=== PATIENT | female | born 1995 | race Caucasian/White ===

== ENCOUNTER 2019-10-28 21:18 | Inpatient (IN) ==
[2019-10-28 22:30] LABS: BASO# 0.02 X1000 (0.0-0.2); BASO% 0.2 % (0.0-0.8); EOS# 0.06 X1000 (0.0-0.7); EOS% 0.6 % (0.0-10.0); HEMATOCRIT 39.6 % (37.0-47.0); IMM GRAN# 0.03 X1000 (0.0-0.04); IMM GRAN% 0.3 % (0.0-0.5); LYMPH# 1.62 X1000 (1.2-3.4); LYMPH% 17.4 % (20.5-51.1); MCHC 30.3 g/dL (33-37); MCV 82.5 FL (81-99); MONO# 0.56 X1000 (0.11-0.59); MPV 10.6 FL (7.4-10.4); NEUT# 7.04 X1000 (1.4-6.5); NEUT% 75.5 % (42.2-75.2); PLT 304 X1000 (130-400); RDW 14.5 % (11.5-14.5); WBC 9.33 X1000 (4.8-10.8)
[2019-10-28 22:45] LABS: AGAP 15; ALB/GLOB RATIO 1.3; ALKALINE PHOSPHATASE 390 U/L (32-104); BUN 17 mg/dL (8-22); CALCIUM 9.7 mg/dL (8.8-10.2); CHLORIDE 104 mmol/L (98-107); COSMO 289; CREATININE 0.8 mg/dL (0.5-0.9); ESTIMATED GFR > 60; GLUCOSE 148 mg/dL (70-104); GOT 301 U/L (10-30); GPT 324 U/L (10-36); SODIUM 143 mmol/L (136-145); TCO2 24 mmol/L (25-35); TOTAL BILIRUBIN 4.15 mg/dL (0.20-1.00); TOTAL PROTEIN 7.1 g/dL (6.3-8.3)
[2019-10-28] MEDS ORDERED: G.I. COCKTAIL PO ONE (22:49)
[2019-10-28] MEDS ORDERED: ZOFRAN IV ONE (22:49)
[2019-10-29 00:16] LABS: AMYLASE 6063 U/L (20-200); LIPASE > 3000 U/L (13-60)
[2019-10-29] MEDS ORDERED: DILAUDID IV ONE (03:20)
[2019-10-29] MEDS ORDERED: NS 1,000 ML IV ONE ×2 (03:20→07:33)
[2019-10-29] MEDS ORDERED: ZOFRAN IV ONE (03:20)
--- NOTE | 2019-10-29 03:28 | PROVIDER DOCUMENTATION ---
This chart was entered by Shereen Lea Scribe, acting as scribe for Rebel White MD. HPI-Abdominal Pain/GI Problem - General Chief Complaint: Abdominal Pain Stated Complaint: ABD PAIN Time Seen by Provider: 10/28/19 21:19 Source: patient Allergies/Adverse Reactions: Patient Allergies Allergy/AdvReac Type Severity Reaction Status Date / Time amoxicillin trihydrate * Allergy RASH Verified 10/29/19 02:09 [From Augmentin] potassium clavulanate * Allergy RASH Verified 10/29/19 02:09 [From Augmentin] Home Medications: Home Medication List Medication Instructions Recorded Confirmed Last Taken Type NK [No Home Medications] 08/08/18 10/29/19 Unknown History - History of Present Illness-ABD Nature of Presenting Problems: 24 yowf c/o n/v and cramping upper abd pain starting last night. pt family sts thought she got food poisoning form [employer] yest. denies diarrhea and cons tipation. pt recently gave on 10-03-2019. hx of gerd w/no meds. allergy to augmentin. Abdominal Pain Onset Location: reports: RUQ, LUQ, epigastric Pain Radiation: reports: no radiation Quality of Pain: reports: cramping Severity in ED: reports: mild Onset/Duration: reports: last night Timing: reports: still present Activities at Onset: reports: none Modifying Factors: improves with: eating Associated Symptoms: reports: nausea, vomiting. denies: constipation, diarrhea # of Vomiting Episodes: 6 Recently seen or treated by another doctor?: Yes (pt gave 10-03-19 ) Review of Systems - Adult - REVIEW OF SYSTEMS - ADULT Constitutional: reports: no symptoms reported. denies: fever, fatique, night sweats Eyes: reports: no symptoms reported Ears, Nose, Mouth & Throat: reports: no symptoms reported Cardiovascular: reports: no symptoms reported Respiratory: reports: no symptoms reported Gastrointestinal: reports: see HPI, abdominal pain, frequent heartburn (hx), nausea, vomiting. denies: hematemesis, constipation, diarrhea Genitourinary: reports: no symptoms reported Musculoskeletal: reports: no symptoms reported Integumentary: reports: no symptoms reported Neurological: reports: no symptoms reported Psychiatric: reports: no symptoms reported Endocrine: reports: no symptoms reported Hematologic/Lymphatic: reports: no symptoms reported Allergic/Immunologic: reports: no symptoms reported All Other Systems: Reviewed and Negative Past History - Adult - PAST MEDICAL HISTORY-ADULT Review of Records: reports: Nursing Assessment Review, Medications Reviewed, Social history reviewed & non-contributory. Major Childhood Illnesses: reports: denies history Cardiovascular: reports: denies history Respiratory: reports: denies history Gastrointestinal: reports: GERD Obstetrical/Gynecological: reports: denies history Genitourinary: reports: kidney stones Musculoskeletal: reports: denies history Neurological: reports: denies history Psychiatric: reports: denies history Endocrine/Immune: reports: denies history Other Conditions: reports: denies history - PRIOR SURGERIES/PROCEDURES Surgical/Procedure History: reports: tonsillectomy, other - IMMUNIZATION STATUS Childhood Immunizations: See Nurse Assessment Flu Vaccine: See Nurse Assessment - FAMILY HISTORY Family History: reviewed, not pertinent - SOCIAL HISTORY Smoking: other (former smoker) Substance Use: none/never Physical Exam-General - PHYSICAL EXAM-ADULT Initial Vital Signs Reviewed: Yes - CONSTITUTIONAL General Appearance: alert, mild distress, obese. negative: cachetic, lethargic, slow to respond - EYES Eyes: PERRL/EOMI - HEAD, EARS, NOSE, MOUTH & THROAT HENMT: normocephalic/atraumatic, moist mucous membranes, other (drooling) - NECK Neck: non-tender, full range of motion, supple, normal inspection - RESPIRATORY Respiratory: chest non-tender, lungs clear, normal breath sounds - CARDIOVASCULAR Cardiovascular: normal peripheral pulses, regular rate, rhythm - GASTROINTESTINAL (ABDOMEN) Abdominal Exam: normal bowel sounds, soft, no organomegaly, no pulsatile mass, tenderness (epigastric pain on palp). negative: non tender, abnormal bowel sounds, distended - MUSCULOSKELETAL Back Exam: normal inspection Extremity: normal range of motion, non-tender, normal inspection - SKIN Integumentary: normal color, normal turgor, warm/dry - NEUROLOGIC Neurologic: grossly normal, no motor/sensory deficits - PSYCHIATRIC Psych/Mental Status: normal mood/affect, normal thought content, normal thought process, oriented x 3 Progress - PLAN OF CARE/RESULTS Progress/Plan/Lab Results: Vital Signs - 8 hr 10/28/19 21:23 Temperature 98.5 F Pulse Rate 89 Respiratory Rate 20 Blood Pressure 124/82 O2 Sat by Pulse Oximetry 95 Laboratory Results - last 24 hr 10/28/19 10/28/19 21:36 21:36 WBC 9.33 RBC 4.80 Hgb 12.0 Hct 39.6 MCV 82.5 MCH 25.0 L MCHC 30.3 L RDW Std Deviation 14.5 Plt Count 304 MPV 10.6 H Immature Gran % (Auto) 0.3 Neut % (Auto) 75.5 H Lymph % (Auto) 17.4 L [place] % (Auto) 6.0 Eos % (Auto) 0.6 Baso % (Auto) 0.2 Immature Gran # (Auto) 0.03 Neut # (Auto) 7.04 H Lymph # (Auto) 1.62 Tensas # (Auto) 0.56 Eos # (Auto) 0.06 Baso # (Auto) 0.02 Plasma Lactate 0.9 Orders Category Date Time Status ED: Urine Bedside ORDERED Care 10/28/19 21:31 Active NEWS Score 2-4:Order NEWS Lactate Series NOW Care 10/28/19 21:30 Active CBC WITH DIFF [HEME] Stat Lab 10/28/19 21:36 Completed COMPREHENSIVE METABOLIC PANEL [CHEM] Stat Lab 10/28/19 21:36 Received LACTATE, PLASMA [CHEM] Lab 10/29/19 01:30 Uncollected LACTATE, PLASMA [CHEM] Lab 10/29/19 04:30 Uncollected LACTATE, PLASMA [CHEM] Q3H Lab 10/28/19 21:36 Completed URINALYSIS [URINALYSIS] Stat Lab 10/28/19 21:31 Uncollected Abd Pain/Abn Bleeding Stat Oth 10/28/19 21:31 Ordered Result Diagrams: 10/28/19 21:36 10/28/19 21:36 - CT/MRI 1 CT Study: Abdomen, Pelvis Impression: Abnormal, See EMR Report (pancreatitis) - CONSULTS/PCP/HOSPITALIST Notification #1 *Consult/PCP/Hospitalist*: Dr Ppee Time Discussed: 03:24 Consult Disposition: Will see in ED, Admit Departure - Departure Date of Disposition Decision: 10/29/19 Time of Disposition Decision: 03:26 DIAGNOSIS: Pancreatitis, Nausea and vomiting Disposition: ADMITTED INPATIENT 09 Certified Medical Emergency: Emergent Condition: Fair Referrals and Follow-Ups: None,PCP [NON-STAFF PROVIDER] - - Critical Care Note This patient required my direct & personal management of CC.: No Attestation - Physician/ FAM Attestation Patient care was provided by Advanced Practice Provider:: No The physician spent face to face time with patient:: Yes Advanced Practice Provider documentation review:: Supervising physician onsite and consulted in the evaluation and care of this patient. The physician did have a face to face encounter with the patient. This chart was documented by the indicated scribe, (Shereen Lea, Sylvia) and accurately reflects the services I performed and decisions made by me, Rebel White MD, as attested by the provider's signature.
[2019-10-29 06:34] LABS: URINE SOURCE CLEAN CATCH
[2019-10-29 06:45] LABS: BILIRUBIN URINE MODERATE (NEGATIVE); BLOOD URINE SMALL (NEGATIVE); COLOR YELLOW; GLUCOSE URINE NEGATIVE (NEGATIVE); KETONE URINE 20 mg/dL (NEGATIVE); LEUKOCYTES URINE TRACE (NEGATIVE); NITRITE URINE NEGATIVE (NEGATIVE); PROTEIN URINE 50 mg/dL (NEGATIVE); TURBIDITY URINE CLEAR (CLEAR); UROBILINOGEN URINE 2 mg/dL (NORMAL)
[2019-10-29 07:14] LABS: URINE CASTS NONE SEEN; URINE CRYSTALS NONE SEEN; URINE SMALL ROUND CELLS NONE SEEN; URINE YEAST PRESENT
[2019-10-29 07:16] LABS: UR EPITHELIAL CELLS <10 /HPF (<10); URINE BACTERIA NEGATIVE /HPF; URINE RBC <10 /HPF (<10); URINE WBC TNTC /HPF (<10)
[2019-10-29 07:16] LABS: HEMATOCRIT 42.8 % (37.0-47.0); HEMOGLOBIN 12.9 g/dL (12.0-16.0); IMM GRAN# 0.02 X1000 (0.0-0.04); IMM GRAN% 0.2 % (0.0-0.5); INR 0.94; LYMPH# 0.72 X1000 (1.2-3.4); LYMPH% 7.1 % (20.5-51.1); MCH 25.1 PG (27-31); MCHC 30.1 g/dL (33-37); MCV 83.3 FL (81-99); MONO# 0.43 X1000 (0.11-0.59); MONO% 4.3 % (1.7-9.3); MPV 10.6 FL (7.4-10.4); NEUT# 8.93 X1000 (1.4-6.5); NEUT% 88.4 % (42.2-75.2); PLT 331 X1000 (130-400); PROTIME 12.7 Seconds (11.0-16.0); RBC 5.14 XMIL (4.2-5.4); RDW 14.9 % (11.5-14.5)
[2019-10-29 07:35] LABS: SP GRAVITY URINE 1.015
[2019-10-29 07:41] LABS: ESTIMATED GFR > 60
[2019-10-29 07:42] LABS: AGAP 12; ALB/GLOB RATIO 1.1; ALKALINE PHOSPHATASE 405 U/L (32-104); BUN 18 mg/dL (8-22); CALCIUM 9.5 mg/dL (8.8-10.2); CHLORIDE 105 mmol/L (98-107); COSMO 289; CREATININE 0.9 mg/dL (0.5-0.9); GLUCOSE 133 mg/dL (70-104); GOT 196 U/L (10-30); GPT 285 U/L (10-36); MAGNESIUM 2.7 mg/dL (1.5-2.7); POTASSIUM 4.3 mmol/L (3.5-5.1); SODIUM 143 mmol/L (136-145); TCO2 26 mmol/L (25-35); TOTAL BILIRUBIN 2.32 mg/dL (0.20-1.00); TOTAL PROTEIN 7.7 g/dL (6.3-8.3)
--- NOTE | 2019-10-29 07:43 | Diag Imaging Result Doc PS360 ---
EXAM: CT ABD/PELVIS W/IV CONT ONLY 10/28/2019 HISTORY: epigastric abdo pain TECHNIQUE: This exam was performed using automated exposure control, adjustment of mA or kV according to patient size, and/or use of iterative reconstruction technique. COMMENT: There is no evidence of acute disease in the visualized portion of the chest. There is some prominence of the intrahepatic biliary ducts and dilatation of the gallbladder with apparent sediment or small stones layering dependently. There is edema throughout the anterior pararenal spaces and around the pancreas particularly distally. There is no evidence of necrosis however and no focal fluid collection to suggest abscess is present. The spleen and adrenal glands are not enlarged. The kidneys are without evidence of hydronephrosis or mass. There is no evidence of bowel obstruction. The aorta is normal in caliber. Pelvis: There is no evidence of appendicitis. There is a small amount of free fluid in the cul-de-sac. The bladder is not distended. There is stool in the rectum. There is no evidence of significant adenopathy. There is vacuum phenomenon in both sacroiliac joints. Otherwise the regional skeleton is unremarkable. IMPRESSION: Pancreatitis with mild biliary dilatation and gallbladder dilatation. The possibility of small gallstones cannot be excluded. Electronically signed by Thompson Dhillon 10/29/2019 7:41 AM
[2019-10-29] MEDS: NS 1,000 ML IV SCH ×2 (07:45→20:42)
[2019-10-29 07:58] LABS: AMYLASE 3172 U/L (20-200); LIPASE 2065 U/L (13-60)
[2019-10-29 08:13] LABS: BANDS 6 % (0-1); HYPOCHROM 1+; LYMPHS 8 % (21-51); MONO 2 % (1-9); SEGS 82 % (42-75)
[2019-10-29] MEDS: ZOFRAN IV PRN ×2 (08:50→14:49)
[2019-10-29] MEDS: DILAUDID IV PRN ×3 (08:50→19:59)
[2019-10-29] MEDS: PROTONIX IV SCH (08:51)
--- NOTE | 2019-10-29 10:25 | GENERAL SURGERY CONSULTATION ---
DATE: 10/29/2019 HISTORY OF PRESENT ILLNESS: Ms. Azul is a 24-year-old white female who is 1 month in 2 days ago after eating at [email or web address], she thought she had food poisoning as she had nausea and vomiting. This was followed by pain in her epigastrium and right upper quadrant. She sought medical attention last night. Her laboratory reveals elevated LFTs, elevated amylase and lipase. A CT scan was done showing and a dilated gallbladder and inflammation in her pancreas. She denies any alcohol intake. She denies any similar previous illness. MEDICATIONS: She has no scheduled medications. ALLERGIES: She is allergic to Augmentin. SOCIAL HISTORY: She denies smoking; however, she is a former smoker. Denies substance abuse. She is and her mother is currently caring for their 1-month-old child. Her is employed. FAMILY HISTORY: Noncontributory. PAST MEDICAL HISTORY: Pertinent only for some gastroesophageal reflux disease and a history of kidney stones. Otherwise negative. REVIEW OF SYSTEMS: Negative in all subsystems except as noted above. Specifically the GI subsystem with some nausea, vomiting and heartburn. PHYSICAL EXAMINATION: Vital Signs: She is afebrile, heart rate 57, blood pressure 147/85, respiratory rate is 18. Neck: She has no cervical adenopathy. No thyroid masses. Lungs: Bilateral breath sounds. Heart: Regular rate and rhythm. Abdomen: Soft. She is tender in the epigastrium. Extremities: No peripheral edema. Pedal pulses are present. Neurologic: She is awake and alert. [place]ATORY [place]: [place] [address], hemoglobin 12.9. Total bilirubin is down to 2.3, AST down to 196, ALT down to 285, alkaline phosphatase is up to 405. Amylase down to 3172. Lipase is down to 2065. IMAGING: CT scan report reveals pancreatitis with mild biliary dilatation and gallbladder dilatation. ASSESSMENT AND PLAN: This lady no doubt has gallstone pancreatitis. I think she should be admitted and hydrated and then we will plan to perform a cholecystectomy on her while she is in the hospital but I would allow her pancreatic enzymes to improve somewhat before considering, and we will give her liquids today. I have discussed these things with her. She understands. cc: MD Gilbert Barros MD [facility]
--- NOTE | 2019-10-29 11:17 | Diag Imaging Result Doc PS360 ---
EXAM: US ABDOMEN-COMPLETE HISTORY: Pancreatitis,Transaminitis TECHNIQUE: Abdominal ultrasound COMPARISON: Recent CT FINDINGS: No mass in the pancreatic head are body. There is edema about the pancreas. No aortic aneurysm. Normal inferior vena cava. No focal hepatic normality. May be mild fatty infiltration of the liver. There are stones filling the gallbladder. Normal kidneys. No hydronephrosis. No splenomegaly. IMPRESSION: 1.Cholelithiasis 2.Pancreatic edema likely related to pancreatitis Electronically signed by Hollis Avitia 10/29/2019 11:15 AM
[2019-10-29] MEDS ORDERED: FLU VACCINE IM ONE (11:22)
--- NOTE | 2019-10-29 12:47 | HISTORY AND PHYSICAL ---
PRIMARY CARE PROVIDER: Dr. Alexis Salguero. CHIEF COMPLAINT: Abdominal pain. HISTORY OF PRESENT ILLNESS: Ms. Azul reports that yesterday shortly after eating [employer] that she did begin to have nausea and vomiting. She states that shortly after this she began to have abdominal pain that was in the mid upper and left upper quadrant. She reports that the pain is continuous, though does have sharp shooting pains that radiate around from her back to her abdomen at times that is an intense type pain. She reported some chills yesterday, but denies any fever or body aches. The patient denies any diarrhea. She denies any hematochezia or melena. She reports that her last bowel movement was yesterday. She denies any headache, dizziness, chest pain, shortness of breath or cough. The patient states that when her pain increases that it does hurt when she takes a deep breath. She denies any dysuria or urinary frequency. She denies any pain, numbness, tingling or swelling in extremities. The patient is 2 day shy of being 1 month . She did deny any vaginal discharge or bleeding as well. The patient states at this time that she is currently still breast-feeding. We did discuss her plans for her baby's nutrition. She states at this time that they have a plan to supplement with formula until she is likely discharged from the hospital. I did discuss with the patient that she does need to discuss with either Dr. Salguero or her sow farm barn technician upon discharge about how long she needs to wait before breast-feeding her child again, given that some of the medicines she was given in the hospital may take time to completely get out of her system. She stated verbal understanding of this. We have placed orders for her to have a breast pump brought down from services while she was admitted. I have discussed with the patient that what she pumps she does need to discard and this does not need to be given to her child. Upon evaluation in the ER, the patient was noted to have elevated liver function tests and elevated amylase and lipase. Her urine did show moderate bilirubin, trace leukocytes and too numerous to count white blood cells. Her serum was negative. They did perform a CT of the abdomen and pelvis with IV contrast only which did show pancreatitis with mild biliary dilation and gallbladder dilation. The possibility of small gallstones could not be excluded. Given this, the patient will be admitted for further treatment and evaluation of pancreatitis, transaminitis with possible gallstone pancreatitis. REVIEW OF SYSTEMS: A 14 point review of systems was conducted with the patient and all were negative, except for pertinent positives mentioned in the HPI. PAST MEDICAL HISTORY: 1. Kidney stones. 2. The patient is approximately 1 month from a vaginal delivery. She reported no or delivery complications. She reported no complications since delivering as well. The patient is currently still at this time, though does plan to pump and discard her breast milk while admitted and does not plan to continue breast-feeding until she is discharged from the hospital. They are going to supplement with formula. PAST SURGICAL HISTORY: 1. Lithotripsy. 2. Tonsillectomy. SOCIAL HISTORY: The patient denies any tobacco, alcohol or illicit drug use. FAMILY HISTORY: Positive for mother having history of diabetes mellitus and hypertension. Her father had a history of hypertension. ALLERGIES: Patient has allergies to Augmentin, stating it causes her to have a rash. HOME MEDICATIONS: The patient denies any [id number] or prescription medication use. DIAGNOSTIC DATA: White blood cell count is 9330, hemoglobin 12, hematocrit 39.6, platelet count is 304. PT 12.7, INR 0.94, PTT is 28. Sodium 143, potassium 4, chloride 104, serum bicarbonate is 24. BUN 17, creatinine 0.8 with a GFR greater than 60. Glucose 148, calcium 9.7. Total bilirubin is 4.15, AST 301, ALT 324, alkaline phosphatase is 390. Amylase is 6063. Lipase is greater than 3000. Plasma lactate is 0.9. Serum is negative. Urinalysis was obtained via clean catch, was positive for protein, ketones, small blood, moderate bilirubin, trace leukocytes and too numerous to count white blood cells. Negative for glucose, nitrite, and bacteria. CT of the abdomen and pelvis with IV contrast only showed pancreatitis with mild biliary dilation and gallbladder dilation. The possibility of small gallstones could not be excluded. PHYSICAL EXAMINATION: VITAL SIGNS: Temperature 98.5 degrees, heart rate 80, respirations 19, blood pressure is 100/77 with a MAP of 86. Oxygen saturation is 97% on room air. GENERAL: Ms. Azul is a pleasant 24-year-old female. She was resting in the ER stretcher. She was in no acute distress. She was awake, alert, and able to answer questions appropriately. HEENT: Head is atraumatic, normocephalic. Pupils are equal, round, reactive to light, were 3 mm bilaterally and brisk. Oral mucosa was slightly dry. Oropharynx was clear. NECK: Supple. Trachea midline. CARDIOVASCULAR: Patient has S1, S2 present. No murmurs, gallops, rubs appreciated with a regular rate and rhythm. PULMONARY: Patient has symmetrical chest expansion bilaterally. Lung sounds were clear to auscultation in bilateral full hutchison. ABDOMEN: Soft, though was tender upon palpation in mid upper quadrant and left upper quadrant. Bowel sounds were present in all 4 quadrants, were normoactive. EXTREMITIES: No cyanosis or edema noted. Pulse, motor, and sensory were intact in all extremities. Radial and pedal pulses were 2+ bilaterally. INTEGUMENTARY: The patient's skin is pink, warm and dry. NEUROLOGICAL: Patient is alert and oriented to person, place, time, and situation. She is able to move all extremities. There are no focal neurological deficits noted. ASSESSMENT AND PLAN: 1. Pancreatitis. 2. Transaminitis. 3. Possible gallstone pancreatitis. For numbers 1 through 3, we will place the patient on nothing by mouth at this time. We will provide a total of 2 liters normal saline bolus, and continue normal saline at 125 mL/hour. We have provided as-needed intravenous pain medication, as well as the as-needed antiemetics. We will place her with Protonix 40 mg intravenous every 12 hours. We have placed further orders for hepatitis profile and an abdominal ultrasound this morning. We have placed a consult with Dr. Barrett with Surgery. We will await his evaluation and further recommendations for management. 1. Nausea, vomiting. We will continue with as-needed antibiotics as mentioned above. 2. Fluid volume depletion. This is likely secondary to her nausea and vomiting. We will continue with intravenous normal saline boluses, and maintenance intravenous fluids as mentioned above. 3. Asymptomatic bacteriuria. The patient did have trace leukocytes white blood cells noted. She is not reporting any urinary symptoms at this time. We will place orders for a urine culture. We will await those results and continue to follow. 4. Status post vaginal delivery 1 month ago and 2 days. The patient did deliver on 10/03/2019. She reported no , delivery or complications. The patient is , although does plan to supplement with formula while she is in the hospital. She does plan to pump, though is going to discard this. 5. Deep vein thrombosis prophylaxis provided with sequential compression devices. The patient has been placed on the medical floor with telemetry. She will have vital signs q. 4 hours. Intake and output. Further orders and recommendations pending hospital course, diagnostic studies, and physician evaluation Dictated by ADELA Lyon for Vicente Pepe MD cc: MD Gilbert Niocle MD
--- NOTE | 2019-10-29 19:48 | GENERAL SURGERY PROGRESS NOTE ---
DATE: 10/29/2019 She is feeling better. We will recheck her labs in the morning. I tentatively plan to proceed with a cholecystectomy on , 10/30/2019. I have discussed this with her, the benefits and risks. She understands and agrees to proceed. cc: MD Gilbert Barros MD
[2019-10-30] MEDS: ZOFRAN IV PRN (02:00)
[2019-10-30] MEDS: DILAUDID IV PRN ×4 (02:00→19:00)
[2019-10-30] MEDS: PROTONIX IV SCH (07:55)
[2019-10-30] MEDS: SODIUM CHLORIDE 0.9% INJ SCH (07:55)
[2019-10-30 08:02] LABS: BASO# 0.01 X1000 (0.0-0.2); BASO% 0.1 % (0.0-0.8); EOS# 0.06 X1000 (0.0-0.7); EOS% 0.7 % (0.0-10.0); HEMATOCRIT 35.6 % (37.0-47.0); HEMOGLOBIN 10.4 g/dL (12.0-16.0); LYMPH# 1.74 X1000 (1.2-3.4); LYMPH% 21.6 % (20.5-51.1); MCH 24.8 PG (27-31); MCHC 29.2 g/dL (33-37); MCV 84.8 FL (81-99); MONO# 0.63 X1000 (0.11-0.59); MONO% 7.8 % (1.7-9.3); MPV 10.7 FL (7.4-10.4); NEUT# 5.61 X1000 (1.4-6.5); NEUT% 69.8 % (42.2-75.2); PLT 239 X1000 (130-400); RDW 14.9 % (11.5-14.5); WBC 8.05 X1000 (4.8-10.8)
[2019-10-30 08:13] LABS: ALB/GLOB RATIO 1.1; ALBUMIN 3.2 g/dL (3.5-5.0); DIRECT BILIRUBIN 0.2 mg/dL (0.00-0.20); TOTAL PROTEIN 6.1 g/dL (6.3-8.3)
[2019-10-30] MEDS ORDERED: FENTANYL ONE (10:40)
[2019-10-30] MEDS ORDERED: DIPRIVAN 1% ONE (10:40)
[2019-10-30] MEDS ORDERED: VERSED ONE (10:40)
[2019-10-30] MEDS ORDERED: LR 1,000 ML ONE (10:44)
[2019-10-30] MEDS ORDERED: MARCAINE 0.25% PF/EPI 1:200,000 ONE (10:44)
[2019-10-30] MEDS ORDERED: SODIUM CHLORIDE 0.9% ONE (10:44)
[2019-10-30 13:02] LABS: HEPATITIS PROFILE ACUTE SEE COMMENTS
--- NOTE | 2019-10-30 13:33 | Diag Imaging Result Doc PS360 ---
EXAM: OPERATIVE CHOLANGIOGRAM 10/30/2019 HISTORY: GALLBLADDER TECHNIQUE: Intraoperative cholangiogram one image COMMENT: The common hepatic and common bile ducts are opacified. There is some narrowing of the distal common bile duct which may be due to spasm. There is a questionable filling defect at the ampulla which may or may not represent a stone. IMPRESSION: Possibility of a distal common bile duct stone cannot be excluded. Electronically signed by Thompson Dhillon 10/30/2019 1:30 PM
--- NOTE | 2019-10-30 13:39 | PROGRESS NOTE ---
DATE: 10/30/2019 SUBJECTIVE: Patient currently in surgery having cholecystectomy per Dr. Barrett. OBJECTIVE: Afebrile. The 11:36 blood pressure was 116/69, pulse 74, respirations 16. Laboratory Data: Shows improving LFTs and pancreatic enzymes. ASSESSMENT: 1. Gallstone pancreatitis. 2. Obesity. PLAN: The patient is undergoing cholecystectomy. Enzymes are improving. Likely, she will stay tonight and may need repeat labs in the morning and possible discharge then if she does well. We will follow along with Dr. Barrett. cc: Gilbert Salguero MD
[2019-10-30] MEDS: DILAUDID ONE ×2 (13:45→13:52)
--- NOTE | 2019-10-30 14:05 | OPERATIVE NOTE ---
PROCEDURE DATE: 10/30/2019 PROCEDURE PERFORMED: Laparoscopic cholecystectomy with operative cholangiogram. SURGEON: Romeo Barrett MD. ZINC ETCHER: Paige. PREOPERATIVE DIAGNOSIS: Acute calculous cholecystitis. POSTOPERATIVE DIAGNOSIS: Acute calculous cholecystitis. FINDINGS: The cholangiogram revealed normal size common duct, free flow in the duodenum. No intraluminal filling defects were seen. DESCRIPTION OF PROCEDURE: Satisfactory general endotracheal anesthesia was achieved. The abdomen was prepped and draped in a sterile fashion. We anesthetized skin below the umbilicus, incised the skin and carried our incision down to the fascia. We used the Optiview technique to enter the abdominal cavity. After entering the abdominal cavity with the 11 trocar we insufflated through this trocar. Under direct visualization used a 5 trocar midclavicular line, a 5 trocar near the anterior axillary line and 11 mm trocar in the midepigastrium. We placed the patient in reverse Trendelenburg and turned her to the left. We grasped the fundus of the gallbladder and reflected cephalad. We then began dissection of the triangle of Calot. We clipped the gallbladder near the junction of the cystic duct. We obtained what we felt to be an adequate critical view, incised the cystic duct, introduced a Deerfield catheter, shot the cholangiogram and the findings above were noted. We removed the cholangiogram catheter, clipped the cystic duct on the opposite side did cystic ductotomy x2 and transected it. Cystic artery was clipped proximally x2, distally x1, and divided. Another small vessel was clipped and divided. We then used the cautery spatula to dissect the gallbladder away from the liver. After complete separation of the gallbladder from the liver, we changed videolaparoscope to the mid epigastric trocar. We introduced a claw forceps through the umbilical trocar. We had to enlarge the fascial incision enough to deliver the gallbladder out of the abdominal cavity due the intraluminal stones, but we were able to enlarge the fascial incision enough to deliver it completely. We then looked back. Hemostasis appeared satisfactory. We desufflated and removed our trocars. We closed the fascia at the subumbilical position with a 2-0 Polysorb [id number] stitch x4, placed a 2-0 Polysorb [id number]-[id number] stitch x2 in the epigastrium. We then closed the skin at each incision with 4-0 Polysorb subcuticular stitches. Sterile OpSites were applied. She tolerated it well and was sent to the recovery room in satisfactory condition. Estimated blood loss was 10 mL cc: MD Gilbert Barros MD
[2019-10-30] MEDS: PERIDEX MT SCH (21:49)
[2019-10-30] MEDS: NORCO-10 PO PRN (21:49)
[2019-10-31] MEDS: DILAUDID IV PRN ×3 (00:48→09:28)
[2019-10-31] MEDS: SODIUM CHLORIDE 0.9% INJ SCH (09:39)
[2019-10-31] MEDS: PROTONIX IV SCH (09:39)
[2019-10-31] MEDS: PERIDEX MT SCH ×2 (09:41→21:16)
--- NOTE | 2019-10-31 11:21 | GENERAL SURGERY PROGRESS NOTE ---
DATE: 10/31/2019 SUBJECTIVE: Ms. Azul is in quite a bit of discomfort but is improving. OBJECTIVE: She is afebrile, heart rate 67, blood pressure 109/71. Her labs have been improving. PLAN: The plan will be to keep her until tomorrow and then let her go home tomorrow. We will give her a full liquid diet today. cc: MD Gilbert Barros MD
--- NOTE | 2019-10-31 13:33 | PROGRESS NOTE ---
DATE: 10/31/2019 SUBJECTIVE: Patient is still having some pain in her abdomen, but she is tolerating the full liquids now well. OBJECTIVE: T-max 99.5 degrees. Vital signs stable.CV: RRR. No murmur. Lungs: CTA. Extremities: No calf tenderness, cords, or edema. Abdomen: Per Dr. Barrett. Neurologic: Nonfocal. LABORATORY: No labs done today. Reviewed those from yesterday. ASSESSMENT: 1. Acute calculous cholecystitis improved after laparoscopic cholecystectomy, intraoperative cholangiogram satisfactory. 2. Gallstone pancreatitis, resolving. 3. Obesity. PLAN: Patient requiring pain medicines. Continue incentive spirometry and ambulation. We will monitor and see how she does, and likely discharge tomorrow as per Dr. Barrett's recommendation. cc: Gilbert Salguero MD
[2019-10-31] MEDS: NORCO-10 PO PRN ×3 (13:51→22:43)
[2019-11-01] MEDS: NORCO-10 PO PRN ×2 (05:28→11:15)
--- NOTE | 2019-11-01 08:28 | GENERAL SURGERY PROGRESS NOTE ---
DATE: 11/01/2019 SUBJECTIVE: The patient is doing well. She denies severe pain, nausea or vomiting. She has tolerated her diet. OBJECTIVE: Vital signs: She is afebrile. Vital signs are stable. General: She is awake, alert, oriented x3. No acute distress. Gastrointestinal: Soft, nondistended, appropriately tender. Incisional dressings clean and dry. LABORATORY DATA: None. ASSESSMENT AND PLAN: A 24-year-old female status post laparoscopic cholecystectomy for recent gallstone pancreatitis. She is recovering well. We will discharge her home today. Instructions were given. cc: MD Gilbert Fuller MD
[2019-11-01 08:36] VITALS: BP 125/72
[2019-11-01] MEDS: PROTONIX IV SCH (08:48)
[2019-11-01] MEDS: SODIUM CHLORIDE 0.9% INJ SCH (08:48)
[2019-11-01] MEDS: PERIDEX MT SCH (08:54)
== END 2019-11-01 11:35 | disposition home or self-care (01) | DRG 769 ==
LOC: ED 21:18 → EDIPHOLD 10-29 06:14 → SUATTDRO 10-29 06:14 → 4N 10-29 16:27
PROVIDERS: ADMIT Family Medicine; ATTEND Family Medicine